=== PATIENT | male | born 1995 | race African-American/Black ===

== ENCOUNTER 2021-12-30 00:27 | Emergency (ER) | payer OTHER ==
[2021-12-30 00:36] VITALS: PULSE 73; RESP 19; TEMP 97.4
[2021-12-30] MEDS ORDERED: FLUORESCEIN STRIPS 1 MG STRIP BOTH EYES ONE (01:22)
[2021-12-30] MEDS ORDERED: PROPARACAINE 0.5% OPHTH DROPS 15 ML BTL LEFT EYE STA (01:22)
[2021-12-30] MEDS ORDERED: PROPARACAINE 0.5% OPHTH DROPS 15 ML BTL RIGHT EYE STA (01:22)
--- NOTE | 2021-12-30 01:27 | ED ---
General Adult HPI - General Chief complaint: Eye Problems Stated complaint: hang flash, [facility] Time Seen by Provider: 12/30/21 01:20 Source: patient, RN notes reviewed, old records reviewed Mode of arrival: ambulatory - History of Present Illness Initial comments: 26-year-old male presents with complaints of underwater welder's flash. 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 He states that as the day progressed his eyes continued to get red with tearing and burning sensation with photophobia. 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 -: hour(s) (12) Location: eyes (Bilateral) Radiation: non-radiation Severity scale (1-10): 10 Quality: burning, constant Consistency: constant Improves with: none Worsens with: other (light) Associated Symptoms: denies other symptoms - Related Data Previous Rx's Medication Instructions Recorded HYDROcodone/APAP 7.5-325MG [[place] 1 tab PO Q6HR PRN 3 Days #12 tab 12/30/21 7.5-325] Ibuprofen [Motrin] 800 mg PO Q6HR #30 tab 12/30/21 Allergies Allergy/AdvReac Type Severity Reaction Status Date / Time No Known Allergies Allergy Verified 12/30/21 00:35 Review of Systems ROS Statement: Those systems with pertinent positive or pertinent negative responses have been documented in the HPI. ROS Other: All systems not noted in ROS Statement are negative. Past Medical History Past Medical History: Hypertension History of Any Multi-Drug Resistant Organisms: None Reported Past Surgical History: No Surgical Hx Reported Past Psychological History: No Psychological Hx Reported Smoking Status: Never smoker Past Alcohol Use History: Occasional Past Drug Use History: None Reported General Exam General appearance: alert, in no apparent distress Eye exam: Present: conjunctival injection, other (Bilateral tearing). Absent: scleral icterus Expanded Eyelids: Swelling: Bilateral Pupils: Regular, Round: Bilateral Sclera/Conjunctival: Injection: Bilateral (No evidence of corneal abrasion with fluorescein and Galvez lamp exam) Respiratory exam: Absent: respiratory distress, accessory muscle use Neurological exam: Present: alert, oriented X3 Psychiatric exam: Present: normal affect, normal mood Skin exam: Present: warm, dry, normal color Course Vital Signs 12/30/21 00:33 Temperature 97.4 F L Pulse Rate 73 Respiratory 19 Rate Blood Pressure 153/87 O2 Sat by Pulse 100 Oximetry Medical Decision Making - Medical Decision Making Patient presents with acute keratitis after welding today. Symptoms started around noon. Patient continues to have clear tearing with photophobia. Patient does not have pain with eye movement. There are punctate epithelial fluorescein uptake on Galvez lamp exam. Patient's pain was relieved with proparacaine drops. He was prescribed [place] and Motrin to take for pain of the next 48 hours and follow-up ophthalmology if symptoms persist. He was also advised to use [id number] lubricating eyedrops. Case discussed with Dr. Grande. Disposition Clinical Impression: Welders' keratitis Disposition: HOME SELF-CARE Condition: Good Instructions (If sedation given, give patient instructions): Corneal Flash [place] (ED) Additional Instructions: Take medications as prescribed for pain. You can use [id number] lubricating saline drops for the next 48 hours. Follow-up with ophthalmology in 2 days as needed. 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 Prescriptions: Ibuprofen [Motrin] 800 mg PO Q6HR #30 tab HYDROcodone/APAP 7.5-325MG [[place] 7.5-325] 1 tab PO Q6HR PRN 3 Days #12 tab PRN Reason: Pain Is patient prescribed a controlled substance at d/c from ED?: No Referrals: None,Stated [Primary Care Provider] - 1-2 days Aime Zavaleta MD [STAFF PHYSICIAN] - 1-2 days Time of Disposition: 02:37
[2021-12-30] MEDS ORDERED: HYDROcodone/APAP 7.5-325MG 1 EACH TAB PO ONE (02:37)
[2021-12-30] MEDS ORDERED: IBUPROFEN 800 MG TAB PO STA (02:37)
[2021-12-30 02:58] VITALS: BP 146/85
== END 2021-12-30 02:58 | disposition home or self-care (01) ==
LOC: EC 00:27
DX: H16.133 Photokeratitis, bilateral (principal); I10 Essential (primary) hypertension
CPT/HCPCS: 99283